=== PATIENT | male | born 1985 | race Caucasian/White ===

== ENCOUNTER 2017-02-23 20:43 | Emergency (ER) | payer SELFPAY ==
[2017-02-24] MEDS ORDERED: IBUPROFEN 600 MG TABLET PO ONE (00:29)
[2017-02-24] MEDS ORDERED: AMOXICILLIN TR/POT CLAVULANATE 500-125 MG TAB PO ONE (00:29)
[2017-02-24] MEDS ORDERED: HYDROCODONE/ACETAMINOPHEN 5-325 MG 6 TAB/DSPK PO PRN (00:29)
--- NOTE | 2017-02-24 00:30 | ER Document Report ---
ED General - General Chief Complaint: Toothache Stated Complaint: TOOTHACHE Notes: Patient is a 31-year-old male who presents with concerns of right lower dental pain. Patient has poor dentition throughout states that where tooth #30 fell out has increasingly become more painful and does have a small amount of drainage. No history of similar symptoms in the past. He has not seen a dentist regarding today's concerns. He denies any difficulty swallowing or breathing. No fever. He has been taking every Profen to treat his pain with minimal improvement. Eating and drinking worsens the pain. TRAVEL OUTSIDE OF THE [place] IN LAST 30 DAYS: No - Related Data Allergies/Adverse Reactions: morphine [Morphine] Allergy (Mild, Verified 10/16/15 08:59) Rash Past Medical History - General Information source: Patient - Social History Smoking Status: Never Smoker Frequency of alcohol use: None Drug Abuse: None Lives with: Spouse/Significant other Family History: Reviewed & Not Pertinent Patient has suicidal ideation: No Patient has homicidal ideation: No Pulmonary Medical History: Reports: Hx Asthma Renal/ Medical History: Reports: Hx Kidney Stones. Denies: Hx Peritoneal Dialysis Psychiatric Medical History: Reports: Hx Depression Past Surgical History: Reports: Hx Orthopedic Surgery - neck and back surgeries - Immunizations Immunizations up to date: Yes Hx Diphtheria, Pertussis, Tetanus Vaccination: Yes - 2010 Review of Systems - Review of Systems Notes: Constitutional: Negative for fever. HENT: Positive for dental pain Eyes: Negative for visual changes. Cardiovascular: Negative for chest pain. Respiratory: Negative for shortness of breath. Gastrointestinal: Negative for abdominal pain, vomiting or diarrhea. Genitourinary: Negative for dysuria. Musculoskeletal: Negative for back pain. Skin: Negative for rash. Neurological: Negative for headaches, weakness or numbness. 10 point ROS negative except as marked above and in HPI. Physical Exam - Vital signs Vitals: Temp Pulse Resp BP Pulse Ox 98 F 50 L 18 123/74 97 02/23/17 20:59 02/23/17 20:59 02/23/17 20:59 02/23/17 20:59 02/23/17 20:59 Interpretation: Bradycardic Notes: PHYSICAL EXAMINATION: GENERAL: Well-appearing, well-nourished and in no acute distress. HEAD: Atraumatic, normocephalic. EYES: sclera anicteric, conjunctiva are normal. ENT: Moist mucous membranes. Poor dentition throughout. Most of the tooth site of tooth #30 is missing all of the root is still present and there is a mild amount of mostly clear drainage from the area around the tooth without any evidence of an apical abscess. No facial swelling. NECK: Normal range of motion. No stridor LUNGS: Normal work of breathing HEART: 2+ radial pulses bilaterally EXTREMITIES: no pitting or edema. No cyanosis. NEUROLOGICAL: No focal neurological deficits. Moves all extremities spontaneously and on command. PSYCH: Normal mood, normal affect. SKIN: Warm, Dry, normal turgor, no rashes or lesions noted. Course - Re-evaluation Re-evalutation: 02/24/17 00:29 Presentation is most consistent with likely an infected tooth. Airway is patent. Vitals within normal limits. Patient is able swallow without any difficulty. There is no significant facial swelling. Patient will be started on antibiotics and a limited number of pain medications. I've instructed to follow-up with dentistry as earliest ability for definitive management. Return precautions and follow-up recommendations have been discussed at length. - Vital Signs Vital signs: Temp Pulse Resp BP Pulse Ox 97.4 F 51 L 16 127/78 H 99 02/24/17 00:59 02/24/17 00:59 02/24/17 00:59 02/24/17 00:59 02/24/17 00:59 Discharge - Discharge Clinical Impression: Pain, dental Condition: Good Disposition: HOME, SELF-CARE Additional Instructions: You have been seen for dental pain. It is very important that you follow-up with a dentist for definitive care. Please return if you develop fever greater than 101, swelling in your face, vomiting, difficulty breathing or swallowing, or any other symptoms that are concerning to you. For pain you should take ibuprofen 600 mg every 6 hours as needed. Prescriptions: Amox Tr/Potassium Clavulanate [Augmentin 875-125 Tablet] 1 tab PO BID 10 Days
[2017-02-24 01:02] VITALS: BP 127/78
== END 2017-02-24 01:02 | disposition home or self-care (01) ==
LOC: ER 20:43
DX: K08.9 Disorder of teeth and supporting structures, unspecified (principal); Z88.6 Allergy status to analgesic agent; Z87.442 Personal history of urinary calculi
CPT/HCPCS: 99282

== ENCOUNTER 2017-06-19 21:54 | Emergency (ER) | payer SELFPAY ==
[2017-06-19] MEDS ORDERED: TETRACAINE HCL 0.5% OPH SOLN 2 ML OD ONE (22:58)
[2017-06-19] MEDS ORDERED: POLYMYXIN B SULFATE/TMP OPH SOLN (10 ML/ER DISP) OD PRN (23:39)
--- NOTE | 2017-06-19 23:43 | ER Document Report ---
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 States since that time he has felt a sensation of a foreign body to the right eye. He notes a dull, constantly irritating pain. Nothing improves or worsens her symptoms. He has had a history of similar events in the past. He has not seen his primary doctor or news videographer regarding today's concerns. Denies any changes to his visual acuity. Denies any additional injuries. TRAVEL OUTSIDE OF THE [place] IN LAST 30 DAYS: No - Related Data Allergies/Adverse Reactions: morphine [Morphine] Allergy (Mild, Verified 10/16/15 08:59) Rash Past Medical History - General Information source: Patient - Social History Smoking Status: Current Every Day Smoker Frequency of alcohol use: Occasional Drug Abuse: None Lives with: Spouse/Significant other Family History: Reviewed & Not Pertinent Patient has suicidal ideation: No Patient has homicidal ideation: No Pulmonary Medical History: Reports: Hx Asthma Renal/ Medical History: Reports: Hx Kidney Stones. Denies: Hx Peritoneal Dialysis Psychiatric Medical History: Reports: Hx Depression Past Surgical History: Reports: Hx Orthopedic Surgery - neck and back surgeries - Immunizations Immunizations up to date: Yes Hx Diphtheria, Pertussis, Tetanus Vaccination: Yes - 2010 Review of Systems - Review of Systems Notes: Constitutional: Negative for fever. HENT: Negative for sore throat. Eyes: Positive for right eye injury Cardiovascular: Negative for chest pain. Respiratory: Negative for shortness of breath. Gastrointestinal: Negative for abdominal pain, vomiting or diarrhea. Genitourinary: Negative for dysuria. Musculoskeletal: Negative for back pain. Skin: Negative for rash. Neurological: Negative for headaches, weakness or numbness. 10 point ROS negative except as marked above and in HPI. Physical Exam - Vital signs Vitals: Temp Pulse Resp BP Pulse Ox 97.7 F 55 L 18 104/58 L 95 06/19/17 22:10 06/19/17 22:10 06/19/17 22:10 06/19/17 22:10 06/19/17 22:10 Interpretation: Bradycardic Notes: PHYSICAL EXAMINATION: GENERAL: Well-appearing, well-nourished and in no acute distress. HEAD: Atraumatic, normocephalic. EYES: Pupils equal round and reactive to light, extraocular movements intact, clear seems staining applied to the right eye. There is a slight corneal abrasion to the temporal central aspect of the eye. A small metallic foreign body is visualized. ENT: nares patent, oropharynx clear without exudates. Moist mucous membranes. NECK: Normal range of motion, supple without lymphadenopathy LUNGS: Breath sounds clear to auscultation bilaterally and equal. No wheezes rales or rhonchi. HEART: Regular rate and rhythm without murmurs ABDOMEN: Soft, nontender, normoactive bowel sounds. No guarding, no rebound. No masses appreciated. EXTREMITIES: Normal range of motion, no pitting or edema. No cyanosis. NEUROLOGICAL: No focal neurological deficits. Moves all extremities spontaneously and on command. PSYCH: Normal mood, normal affect. SKIN: Warm, Dry, normal turgor, no rashes or lesions noted. Course - Re-evaluation Re-evalutation: 06/19/17 23:42 Patient presents with a corneal abrasion with an associated metallic foreign body to the right eye. No evidence of globe rupture. Extraocular motions intact. Pupils are equal and reactive bilaterally. The eye was stained with fluorescein and a corneal abrasion with associated foreign body was seen on the temporal aspect of the right central eye. This was removed using a 25-gauge needle without difficulty. The eye was restained thereafter with only moderate increase in the size of the corneal abrasion around the right eye. Patient will be started on Polytrim drops and has been encouraged to follow-up with a news videographer at his earliest ability. At this time will discharge with return precautions and follow-up recommendations. Verbal discharge instructions given a the bedside and opportunity for questions given. Medication warnings reviewed. Patient is in agreement with this plan and has verbalized understanding of return precautions and the need for primary care follow-up in the next 24-72 hours. - Vital Signs Vital signs: Temp Pulse Resp BP Pulse Ox 98.0 F 56 L 18 110/58 L 91 L 06/19/17 23:50 06/19/17 23:50 06/19/17 23:50 06/19/17 23:50 06/19/17 23:50 Procedures - Eye Procedure Right Foreign body removal: Right Alcaine Drops Administered: Yes Fluorescein applied: Right Antibiotic Oinment/Drps Admin: Right eye Slit lamp used: Yes Notes: 06/19/17 23:39 Foreign body removal of the right eye using a 25-gauge needle for metal foreign body extraction. Patient did also have a small corneal abrasion surrounding the area both before and after the procedure. Tolerated well. Discharge - Discharge Clinical Impression: Corneal abrasion of the right eye Foreign body of right eye Qualifiers: Encounter type: initial encounter Qualified Code(s): T15.91XA - Foreign body on external eye, part unspecified, right eye, initial encounter Condition: Good Disposition: HOME, SELF-CARE Instructions: Corneal Abrasion ([facility]) Additional Instructions: You had a foreign body in your right eye which has been removed. You do also have a small corneal abrasion which is a scratch to the surface of your eye. Apply 2 drops to the Polytrim antibiotic ointment to the eye 3 times daily. Follow up with an governor assembler or news videographer in the next 48-72 hours. Return to the emergency department immediately if you develop pus draining from the eye, worsening of your pain, spreading redness around the eye, changes in your visual acuity, or any other symptoms that are worrisome to you.
[2017-06-20 00:04] VITALS: BP 110/58
== END 2017-06-20 00:03 | disposition home or self-care (01) ==
LOC: ER 21:54
DX: S05.01XA Injury of conjunctiva and corneal abrasion without foreign body, right eye, initial encounter (principal); T15.91XA Foreign body on external eye, part unspecified, right eye, initial encounter; X58.XXXA Exposure to other specified factors, initial encounter; F17.200 Nicotine dependence, unspecified, uncomplicated
CPT/HCPCS: 99283; J3490